=== PATIENT | female | born 1995 | race African-American/Black ===

== ENCOUNTER 2020-09-22 19:58 | Emergency (ER) | payer MEDICAID ==
[~2020-09-22] VITALS: Ht 175.3 cm; Wt 73.0 kg
--- NOTE | 2020-09-22 20:41 | NUR ---
ED Nurse Note: Pt ambulated into ED. Pt reports she tore her nail on 4th finger, left hand. Pt reports she cleaned finger with alcohol and peroxide. Pt is [employer] [email or web address]. Addendum: 09/22/20 at 2057 by LONA Pt injured 4th finger on RIGHT hand. Left hand documented is an error.
[2020-09-22 20:44] VITALS: BP 109/72
[2020-09-22] MEDS ORDERED: Acetaminophen 500mg (ES) tab ORAL ONE (21:00)
[2020-09-22] MEDS ORDERED: Lidocaine 1% Plain 30 ml INJ ONE (21:00)
--- NOTE | 2020-09-22 21:02 | NUR ---
ED Nurse Note: Suture tray with lidocaine set up for provider. Pain meds provided.
[2020-09-22] MEDS ORDERED: TYLENOL325 MG ORAL (21:20)
--- NOTE | 2020-09-22 21:20 | Emergency Room Report ---
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 COVID-19 Screening: Negative COVID-19 COVID-19 Testing Source: unk Patient History Past Medical History: see triage record Reviewed Nursing Documentation: PMH: Agreed; PSxH: Agreed Review of Systems All Other Systems: negative except mentioned in HPI Physical Exam Vital Signs Date Time Temp Pulse Resp B/P (MAP) Pulse Ox O2 Delivery O2 Flow Rate FiO2 09/22/20 20:25 97.5 78 18 109/72 (84) 97 Room Air General Appearance: well appearing, no apparent distress Head: normocephalic, atraumatic ENT: hearing grossly normal, normal voice Neck: full range of motion, supple Respiratory: no respiratory distress, speaking full sentences Musculoskeletal: other - Right upper extremity: Partially avulsed nail of second digit Neurologic: alert, normal gait Psychiatric: mood/affect normal Skin: no rash Medical Decision Making Diagnostic Impression: Primary Impression: Nail avulsion, finger Qualified Codes: S61.309A - Unspecified open wound of unspecified finger with damage to nail, initial encounter ER Course 24-year-old female presents with avulsion of the nail no injury to the nailbed Nail was removed utilizing a finger block, 1% lidocaine was injected approximately 5 mL, after area was cleansed with chlorhexidine, nail was then removed no injury to the nailbed patient tolerated procedure well Disposition home with return precautions anticipatory guidance given Last Vital Signs Date Time Temp Pulse Resp B/P (MAP) Pulse Ox O2 Delivery O2 Flow Rate FiO2 09/22/20 20:44 97.5 71 18 109/72 97 Room Air Disposition: HOME, SELF-CARE Condition: Stable Scripts Acetaminophen (Tylenol) 325 Mg Tablet 650 MG ORAL Q6H PRN for Prn Pain/Headache/Temp > 101, #30 TAB 0 Refills Prov: Brian Haque MD 09/22/20 Referrals: NOT CHOSEN [facility]/,REFERRING (PCP) [facility] Patient Instructions: Nail Avulsion Additional Instructions: The patient was provided with discharge instructions, notified to follow-up with a primary care doctor and or specialist in the next 24-48 hours, and to return to the ED if they have worsening of their symptoms. Please note that this report is being documented using DRAGON technology. This can lead to erroneous entry secondary to incorrect interpretation by the dictating instrument. Brian Haque MD Sep 22, 2020 21:20
--- NOTE | 2020-09-22 21:32 | NUR ---
ED Nurse Note: Pt cleared by health care Provider for discharge. Non-adherent dressing applied to right 4th finger, per provider instruction. D/C instructions/prescription given and explained to pt, and pt verbalized understanding of teachings. All medical devices such as ID band removed. Pt is AAO x4, ambulatory and left with all personal belongings.
[2020-09-22 21:33] VITALS: BP 121/60
== END 2020-09-22 21:35 | disposition home or self-care (01) ==
LOC: EMR 20:30
DX: S61.300A Unspecified open wound of right index finger with damage to nail, initial encounter (principal); X58.XXXA Exposure to other specified factors, initial encounter; Y93.41 Activity, dancing; Y92.9 Unspecified place or not applicable
CPT/HCPCS: 11750; J2001; Z7502; 99282